=== PATIENT | male | born 1970 | race Caucasian/White ===

== ENCOUNTER 2020-05-20 09:32 | Emergency (ER) | payer SELFPAY ==
[~2020-05-20] VITALS: Ht 170.2 cm; Wt 63.5 kg
[2020-05-20 09:35] VITALS: Ht 170.2 cm; Wt 63.5 kg
[2020-05-20 10:49] VITALS: BP 140/89
== END 2020-05-20 13:58 | disposition home or self-care (01) ==
LOC: ED 09:32
DX: S82.201D Unspecified fracture of shaft of right tibia, subsequent encounter for closed fracture with routine healing (principal); F17.210 Nicotine dependence, cigarettes, uncomplicated; X58.XXXD Exposure to other specified factors, subsequent encounter; S82.401D Unspecified fracture of shaft of right fibula, subsequent encounter for closed fracture with routine healing
CPT/HCPCS: 99406; J1885; Q0092